=== PATIENT | female | born 1970 | race African-American/Black ===

== ENCOUNTER 2022-10-02 08:09 | Observation (INO) ==
[2022-10-02] MEDS ORDERED: SODIUM CHLORIDE 0.9% 1,000 ML IV STA (09:32)
[2022-10-02] MEDS ORDERED: ONDANSETRON 4 MG/2 ML VIAL IV STA (09:32)
[2022-10-02] MEDS ORDERED: HYDROmorphone 1 MG/1 ML SYRINGE IV STA (09:32)
[2022-10-02 09:53] LABS: Basophils # 0.1 10*3/uL (0.0-0.2); Basophils % 0.6 % (0.0-0.8); Eosinophils # 0.1 10*3/uL (0.0-0.87); Eosinophils % 1.3 % (0.00-10.9); Hematocrit 42.5 VOL% (35.7-47.0); Immature Granulocytes % 0.2 %; Immature Granulocytes Absolute 0.02 #; Lymphocytes # 2.5 10*3/uL (1.4-4.0); Lymphocytes % 28.6 % (21.3-54.2); Mean Corpuscular HGB Conc 32.9 GM/DL (32-36); Mean Corpuscular Volume 86.2 FL (87-102); Mean Platelet Volume 10.5 FL (9.6-12.0); Monocytes # 0.5 10*3/uL (0.11-0.8); Monocytes % 5.9 % (1.7-12.7); Neutrophils % 63.4 % (38.7-73.9); Platelet Count 294 T/CUMM (130-400); Red Blood Count 4.93 MC/CUMM (3.8-5.5); White Blood Count 8.8 T/CUMM (4-12)
[2022-10-02 10:13] LABS: Albumin 3.5 G/DL (3.4-5.0); Bilirubin,Total 0.4 MG/DL (0.20-1.00); Osmolality,Calculated 277.5 MOS/KG (273-304); Potassium 3.4 MMOL/L (3.5-5.1); Total Protein 8.5 G/DL (6.4-8.2)
[2022-10-02 10:18] LABS: Mucus,Urine Occasional /LPF (Occasional); RBC,Urine <1 /HPF (0-4); Squamous Epithelial Cell,Urine Occasional /HPF (0-10)
[2022-10-02 10:19] LABS: Urine Appearance Clear (Clear); Urine Color Yellow (Yellow)
[2022-10-02 10:20] LABS: Bilirubin,Urine Negative (Negative); Blood, Urine Negative (Negative); Glucose,Urine (UA) Negative (Negative); Ketones,Urine Negative (Negative); Nitrite,Urine Negative (Negative); Protein,Urine Negative (Negative); Urine Urobilinogen 0.2 eU/dL (<2.0); Urine pH 6.5 (4.5-8.0)
[2022-10-02] MEDS ORDERED: PIPERACILLIN/TAZOBACTAM 3,375 MG in SODIUM CHLORIDE 0.9% 100 ML IV STA (11:32)
[2022-10-02] MEDS ORDERED: ONDANSETRON 4 MG/2 ML VIAL IV PRN (13:08)
[2022-10-02] MEDS ORDERED: POTASSIUM CHLORIDE RIDER 10 MEQ/100 ML PREMIX IV PRN (13:11)
[2022-10-02] MEDS ORDERED: HYDROmorphone 1 MG/1 ML SYRINGE IV PRN (13:13)
[2022-10-02] MEDS ORDERED: hydrALAZINE 20 MG/1 ML VIAL IV PRN (14:29)
[2022-10-02] MEDS: ENOXAPARIN 40 MG/0.4 ML SYRINGE SUBCUT SCH (14:37)
[2022-10-02] MEDS: SODIUM CHLORIDE 0.9% 1,000 ML IV SCH ×2 (14:37→23:38)
[2022-10-02] MEDS ORDERED: ACETAMINOPHEN 325 MG TABLET PO PRN (15:47)
[2022-10-02] MEDS ORDERED: ATORVASTATIN 20 MG TABLET PO SCH (21:00)
[2022-10-02] MEDS: PIPERACILLIN/TAZOBACTAM 3,375 MG in SODIUM CHLORIDE 0.9% 100 ML IV SCH (22:01)
[2022-10-02] MEDS: METOPROLOL TARTRATE 25 MG TABLET PO SCH (22:01)
[2022-10-02] MEDS: propylthiouraciL 50 MG TABLET PO SCH (22:19)
[2022-10-03] MEDS: PIPERACILLIN/TAZOBACTAM 3,375 MG in SODIUM CHLORIDE 0.9% 100 ML IV SCH ×2 (04:37→13:22)
[2022-10-03 05:58] LABS: Basophils % 0.6 % (0.0-0.8); Eosinophils # 0.1 10*3/uL (0.0-0.87); Hematocrit 37.4 VOL% (35.7-47.0); Hemoglobin 12.1 GM/DL (12.0-16.0); Immature Granulocytes % 0.3 %; Immature Granulocytes Absolute 0.02 #; Lymphocytes % 29.3 % (21.3-54.2); Mean Corpuscular HGB Conc 32.4 GM/DL (32-36); Mean Corpuscular Volume 87.4 FL (87-102); Mean Platelet Volume 10.8 FL (9.6-12.0); Monocytes # 0.4 10*3/uL (0.11-0.8); Monocytes % 5.1 % (1.7-12.7); Neutrophils % 63.7 % (38.7-73.9); Platelet Count 252 T/CUMM (130-400); Red Blood Count 4.28 MC/CUMM (3.8-5.5); Red Cell Distribution Width 13.1 % (9.3-17.3); White Blood Count 6.9 T/CUMM (4-12)
[2022-10-03 06:15] LABS: Calcium 8.5 MG/DL (8.5-10.1); Osmolality,Calculated 278.4 MOS/KG (273-304); Potassium 3.6 MMOL/L (3.5-5.1)
[2022-10-03 08:19] LABS: Free T4 (Free Thyroxine) 1.05 NG/DL (0.76-1.46)
[2022-10-03] MEDS: propylthiouraciL 50 MG TABLET PO SCH (09:44)
[2022-10-03] MEDS: METOPROLOL TARTRATE 25 MG TABLET PO SCH (09:44)
[2022-10-03 11:59] VITALS: BP 115/63
[2022-10-03] MEDS: SODIUM CHLORIDE 0.9% 1,000 ML IV SCH (13:22)
[2022-10-03] MEDS: ENOXAPARIN 40 MG/0.4 ML SYRINGE SUBCUT SCH (13:23)
== END 2022-10-03 15:48 | disposition home or self-care (01) ==
LOC: N.EDINP 08:09 → N.ED 08:09 → SUATTDRO 13:06 → N.2W 14:33
PROVIDERS: ADMIT Internal Medicine; ATTEND Internal Medicine